=== PATIENT | male | born 1950 | race Hispanic/Latino ===

== ENCOUNTER → 2019-01-02 | Outpatient (CLI) | payer OTHER ==
[~2019-01-02] VITALS: Ht 175.3 cm; Wt 101.2 kg
[~2019-01-02] MED LIST: REGADENOSON 0.4 MG/5 ML PF SYG IVP SCH
== END | disposition home or self-care (01) ==
LOC: SHCH 08:32
PROVIDERS: ATTEND Internal Medicine Cardiovascular Disease
DX: I25.10 Atherosclerotic heart disease of native coronary artery without angina pectoris (principal)
CPT/HCPCS: 78452; 93017; 96374; A9500 ×2; J2785

== ENCOUNTER → 2019-05-21 | Outpatient (CLI) | payer OTHER ==
[~2019-05-21] MED LIST changes: +AEC81 PO; +ATOR40TA71 PO; +LOSA50TA64 PO; +METO25TA6 PO; +RANO500T3 PO; -REGADENOSON 0.4 MG/5 ML PF SYG IVP SCH
[2019-05-21 09:24] LABS: HEMATOCRIT 41.5 % (42-54); MEAN CORPUSCULAR HGB CONC 33.7 g/dL (32.0-36.0); MEAN CORPUSCULAR VOLUME 97.9 fL (79-99); PLATELET COUNT (AUTO) 180 K/uL (130-400); RED BLOOD CELL COUNT(AUTO) 4.24 MIL/uL (4.50-6.20); RED CELL DISTRIBUTION WIDTH 13.3 % (11.0-15.5); WHITE BLOOD COUNT (AUTO) 6.3 K/uL (4.8-10.8)
[2019-05-21 09:37] LABS: INR 1.02 (0.85-1.15); PARTIAL THROMBOPLASTIN TIME 27.5 SEC (26.3-35.5); PROTHROMBIN TIME 10.7 SEC (9.6-11.6)
[2019-05-21 09:41] LABS: ALBUMIN 3.6 g/dL (3.5-5.0); BILIRUBIN,TOTAL 1.5 mg/dL (0.2-1.0); CREATININE 1.1 mg/dL (0.5-1.5); TOTAL PROTEIN, SERUM 6.9 g/dL (6.0-8.3)
== END | disposition home or self-care (01) ==
LOC: LAB 07:58
PROVIDERS: ATTEND Surgery
DX: Z01.818 Encounter for other preprocedural examination (principal); M47.814 Spondylosis without myelopathy or radiculopathy, thoracic region; K81.1 Chronic cholecystitis; N20.1 Calculus of ureter
CPT/HCPCS: 36415; 71046; 80053; 82306; 83970; 85027; 85610; 85730; 93005

== ENCOUNTER 2019-05-24 10:12 | Day surgery (SDC) | payer OTHER ==
[2019-05-21 10:18] VITALS: BP 127/73
[2019-05-21 10:30] LABS: APPEARANCE,URINE Clear (CLEAR); BILIRUBIN,URINE Negative (NEGATIVE); COLOR,URINE Yellow (YELLOW); GLUCOSE, URINE (UA) Negative (NEGATIVE); KETONES,URINE Negative (NEGATIVE); LEUKOCYTE ESTERASE ,URINE Negative (NEGATIVE); NITRATE,URINE Negative (NEGATIVE); OCCULT BLOOD,URINE Negative (NEGATIVE); PROTEIN,URINE Negative (NEGATIVE)
[~2019-05-24] VITALS: Ht 174 cm; Wt 102.8 kg
[2019-05-24] VITALS (16 sets, daily range): BP systolic 122–148; BP diastolic 60–84
[~2019-05-24 10:12] MED LIST changes: +CEFTRIAXONE SODIUM 1 GM IVP SCH; +GENTAMICIN 80 MG/NS 100 ML PB 100 ML IV SCH
[2019-05-24] MEDS ORDERED: IOHEXOL-350 50ML VIAL IV ONE (11:20)
[2019-05-24] MEDS ORDERED: LACTATED RINGERS 1000ML 1,000 ML IV ONE ×2 (12:11→12:12)
[2019-05-24] MEDS ORDERED: CEFTRIAXONE SODIUM 1 GM ONE (12:11)
[2019-05-24] MEDS ORDERED: GENTAMICIN 80 MG/NS 100 ML PB 100 ML IV ONE (12:12)
[2019-05-24] MEDS ORDERED: FENTANYL CITRATE PF 50 MCG/1 ML 5ML AMP IV ONE (13:58)
[2019-05-24] MEDS ORDERED: PROPOFOL 10 MG/ML 20ML VIAL IV ONE (13:58)
[2019-05-24] MEDS ORDERED: MIDAZOLAM HCL 1 MG/ML 2ML VIAL ONE (13:58)
[2019-05-24] MEDS ORDERED: LIDOCAINE PF 2% 5ML ABBOJECT ONE (13:58)
[2019-05-24] MEDS ORDERED: EPHEDRINE SULFATE 50 MG/ML AMPULE ONE (14:23)
[2019-05-24] MEDS ORDERED: ONDANSETRON HCL 4 MG/2 ML VIAL ONE (15:33)
== END 2019-05-24 16:45 | disposition home or self-care (01) ==
LOC: DAH 10:12
PROVIDERS: ATTEND Urology
DX: N20.1 Calculus of ureter (principal); N28.89 Other specified disorders of kidney and ureter; I10 Essential (primary) hypertension; I25.2 Old myocardial infarction
CPT/HCPCS: 36415; 52356; 81003; 82360; 87088; A4215; A4221; A4222; A4223; A4354; A4600; A4663; A6207; A6260; C1758; C1769; C2617; J0696; J1580; J2001; J2250; J2405; J2704; J3010; J3490; J7120 ×3; 77002; Q9967

== ENCOUNTER 2020-07-16 20:24 | Emergency (ER) | payer OTHER ==
[~2020-07-16 20:24] MED LIST changes: -CEFTRIAXONE SODIUM 1 GM IVP SCH; -GENTAMICIN 80 MG/NS 100 ML PB 100 ML IV SCH
[2020-07-16] MEDS ORDERED: ASPIRIN 81MG TAB.CHEW ONE (20:43)
[2020-07-16 20:48] LABS: BASOPHILS % (AUTO) 0.3 % (0.0-5.0); EOSINOPHILS % (AUTO) 2.3 % (0.0-8.0); HEMATOCRIT 42.9 % (42-54); LYMPHOCYTES % (AUTO) 34.9 % (21.0-51.0); MEAN CORPUSCULAR HEMOGLOBIN 33.6 pg (27.0-33.0); MEAN CORPUSCULAR HGB CONC 34.5 g/dL (32.0-36.0); MEAN CORPUSCULAR VOLUME 97.3 fL (79-99); MONOCYTES % (AUTO) 13.3 % (3.0-13.0); PLATELET COUNT (AUTO) 173 K/uL (130-400); RED BLOOD CELL COUNT(AUTO) 4.41 MIL/uL (4.50-6.20); RED CELL DISTRIBUTION WIDTH 13.1 % (11.0-15.5); WHITE BLOOD COUNT (AUTO) 8.7 K/uL (4.8-10.8)
[2020-07-16 20:59] LABS: CREATININE 1.2 mg/dL (0.5-1.5); POTASSIUM 3.8 mmol/L (3.5-5.1)
[2020-07-16 21:00] LABS: INR 1.05 (0.85-1.15); PROTHROMBIN TIME 11.4 SEC (9.6-11.6)
[2020-07-16 21:01] LABS: PARTIAL THROMBOPLASTIN TIME 27.1 SEC (26.3-35.5)
[2020-07-16 21:03] LABS: ALBUMIN 4.1 g/dL (3.5-5.0); BILIRUBIN,TOTAL 1.2 mg/dL (0.2-1.0); TOTAL PROTEIN, SERUM 7.5 g/dL (6.0-8.3)
[2020-07-16 21:11] LABS: B-TYPE NATRIURETIC PEPTIDE 14 pg/mL (0-100)
[2020-07-17] MEDS ORDERED: LIDOCAINE HCL 2% VISCOUS 15 ML UDCUP ONE (00:30)
[2020-07-17] MEDS ORDERED: DEXAMETHASONE SOD PHOSPHATE 10MG/ML 1ML VIAL ONE (00:30)
[2020-07-17] MEDS ORDERED: FAMOTIDINE/PF 20 MG/2 ML VIAL IV ONE (00:30)
[2020-07-17] MEDS ORDERED: MAGNESIUM HYDROXIDE 30 ML/UDCUP ONE (00:31)
[2020-07-17] MEDS ORDERED: HYDROCODONE/ACETAMINOPHEN 5/325 MG TAB ONE (01:21)
[2020-07-17] MEDS ORDERED: ONDANSETRON HCL 4 MG/2 ML VIAL ONE (02:28)
== END 2020-07-17 03:18 | disposition home or self-care (01) ==
LOC: EDH 20:24
DX: M94.0 Chondrocostal junction syndrome [Tietze] (principal); K29.00 Acute gastritis without bleeding; G44.209 Tension-type headache, unspecified, not intractable; I10 Essential (primary) hypertension; E66.01 Morbid (severe) obesity due to excess calories
CPT/HCPCS: 36415; 70450; 71045; 80053; 82550; 83880; 84484 ×2; 85025; 85610; 85730; 93005; 96374; 96375; 99285; J1100; J2405; J3490